=== PATIENT | female | born 1995 | race Caucasian/White ===

== ENCOUNTER → 2025-01-06 14:30 | Outpatient (CLI) | payer OTHER, SELFPAY ==
--- NOTE | 2025-01-06 14:33 | DI.US.S_ITS ---
PROCEDURE: US VENOUS INSUFFICIENCY LTD INDICATIONS: vericous veins TECHNIQUE: Real time scanning was performed of the lower extremity venous system, with imaging documentation, as well as Color and pulse Doppler interrogation. COMPARISON: None. FINDINGS: LEFT LOWER EXTREMITY: The deep veins are normally compressible, and free of intraluminal thrombus (see the bold section below for a partially occlusive thrombus). Color and pulse Doppler demonstrate normal intravascular flow. There is normal augmentation with distal compression maneuver. Greater saphenous vein (GSV): Normally 4 mm or less in diameter, with any reflux less than 0.5 seconds. Saphenofemoral junction (SFJ): 6 mm. Reflux present. Proximal GSV: 6 mm. Reflux present. Mid GSV: 6 mm. Reflux present. Distal GSV: 6 mm. Reflux present. Calf GSV: 5 mm. Anterior accessory GSV (AAGSV): Anatomic variant not present across anterior thigh. Small saphenous vein (SSV): Posterior calf, draining into popliteal vein. Posterior calf: 3 mm. No reflux. Vein of Giacomini (posterior thigh connection between GSV and SSV): Anatomic variant not seen. Nonocclusive thrombus in a small segment of a greater saphenous vein branch at the level of the medial knee joint line. IMPRESSION: Greater saphenous vein reflux, along with a nonocclusive thrombus in a branch of the greater saphenous vein at the level of the medial knee joint line. An unsuccessful attempt was made to communicate these findings to the ordering provider via telephone call on 01/06/2025 at 3:58 p.m.. Dictated by: Rk Mas M.D. on 01/06/2025 at 15:48 Approved by: Rk Mas M.D. on 01/06/2025 at 15:58
== END ==
PROVIDERS: PCP Family Medicine; Referring Provider Family Medicine; Visit Provider Family Medicine
DX: I83.92 Asymptomatic varicose veins of left lower extremity (principal); I82.812 Embolism and thrombosis of superficial veins of left lower extremity
CPT/HCPCS: 93971

== ENCOUNTER 2025-03-27 13:49 | Emergency (ER) | payer OTHER, SELFPAY ==
[2025-03-27 13:55] VITALS: BP 142/82; PULSE 99; O2SAT 97
--- NOTE | 2025-03-27 13:57 | ED_ITS ---
<Statement entered by Maulik Gill, DO - 03/27/25 18:32> Co-sign statement: I was available for consultation during this patient's emergency department visit. This chart is being signed by myself for administrative purposes only. I do not have direct contact with this patient during this visit. They were seen independently by the APC. HPI - General Adult General Chief complaint: Extremity Problem,Nontraumatic Stated complaint: on blood thinner has deep vein thrombosis flare up Time Seen by Provider: 03/27/25 13:52 History of Present Illness HPI narrative: This is a 29-year-old female presents emergency department due to concerns for right lower extremity pain and swelling. States that she was diagnosed with a DVT in the left lower extremity 3 months ago and was placed on Eliquis which she has been taking as prescribed. She had a long drive from [place] to [place] 2 days ago and soon after noticed some pain and mild edema to the right lower extremity. Denies any chest pain, shortness breath, fevers, or any other concerning signs or symptoms. Related Data Allergies Allergy/AdvReac Type Severity Reaction Status Date / Time No Known Drug Allergies Allergy Verified 03/27/25 13:59 Review of Systems Review of Systems Narrative: GENERAL: Denies chills, fatigue, malaise, fever, sweats. HEENT: Denies sinus pain, ear pain, sore throat, difficulty swallowing, dizziness. RESPIRATORY: Denies dyspnea, cough, wheezing, hemoptysis, sputum. CARDIOVASCULAR: Denies chest pain, palpitations, orthopnea, edema, GASTROINTESTINAL: Denies nausea, vomiting, abdominal pain, diarrhea, constipation, melena. : Denies dysuria, frequency, incontinence, hematuria, urinary retention. MUSCULOSKELETAL: Reports right ankle pain and swelling. SKIN: Denies rash, skin lesions, or other NEUROLOGIC: Denies weakness, headache, numbness, change in speech, confusion, seizures, incoordination. PSYCHIATRIC: No concerning psychosocial issues. 12 point review of systems is negative except for those stated above Exam Narrative Exam Narrative: GENERAL: Well-developed patient, in mild distress. HEAD: Atraumatic. Normocephalic. EYES: Pupils equal round and reactive. Extraocular motions intact. No scleral icterus. No injection or drainage. ENT: Nose without bleeding, purulent drainage. Throat without erythema, tonsillar hypertrophy or exudate. Airway patent. NECK: Trachea midline. Non tender EXTREMITIES: No significant edema noted to the right ankle. No tenderness to palpation. No pain with palpation it was so the posterior calf or palpable cords. Does have bilateral sunburns to the lower extremities NEURO: AOx3. SKIN: No rash or erythema of visible areas Initial Vital Signs Initial Vital Signs: Vital Signs Pulse Rate 99 H 03/27/25 13:55 Blood Pressure 142/82 H 03/27/25 13:55 Pulse Oximetry 97 03/27/25 13:55 Course Orders Ordered: ED Orders 03/27/25 14:07 [facility] venous low extrem rt Stat Vital Signs Vital signs: Vital Signs - 8 hr 03/27/25 13:55 03/27/25 13:55 03/27/25 13:59 Temperature 98.2 F Pulse Rate 99 H 85 Respiratory Rate 18 Blood Pressure 142/82 H 142/82 H Pulse Oximetry 97 99 Oxygen Delivery Method Room Air 03/27/25 14:00 03/27/25 14:01 03/27/25 14:01 Temperature Pulse Rate 92 H 99 H Respiratory Rate Blood Pressure 122/69 Pulse Oximetry 99 100 Oxygen Delivery Method 03/27/25 14:30 03/27/25 14:30 Temperature Pulse Rate 84 Respiratory Rate Blood Pressure 121/66 Pulse Oximetry 100 Oxygen Delivery Method Medical Decision Making Imaging Data Extremity x-ray #1: Radiologist's Impression: [place] [address] Ultrasound Report Signed Patient: Irene Funes MR#: [id number] : 1995 Acct:[id number] Age/Sex: 29 / F Date of Service: 03/27/25 Loc: ED Accession Number: [id number] Procedure: [facility] venous low extrem rt Ordering Provider: Ellis Albarado PA-C PROCEDURE: PERIP VENOUS LOW EXTREM RT INDICATIONS: SWELLING. HISTORY OF SUPERFICIAL VENOUS THROMBOSIS TECHNIQUE: Real-time imaging, as well as color and pulse Doppler interrogation, were performed of the lower extremity deep veins from the inguinal ligament to the popliteal fossa, with documentation of the visualized calf veins. COMPARISON: None. FINDINGS: The common femoral, femoral, popliteal, and the visualized calf veins are normally compressible, and free of intraluminal thrombus. Color and pulse Doppler demonstrate normal phasic intraluminal flow. There is normal augmentation response to distal compression maneuver. IMPRESSION: No findings of lower extremity deep venous thrombosis. Dictated by: Bertin Wilson M.D. on 03/27/2025 at 15:39 Approved by: Bertin Wilson M.D. on 03/27/2025 at 15:39 [facility] Narrative Medical decision making narrative: ED course: This is a 21-year-old female presenting to the emergency department due to concerns for right lower extremity pain swelling. She had SVT approximately 3 months ago was placed on Eliquis and she was concerned that she was developing another clot in her right lower extremity. Ultrasound was negative for any kind clot. Suspect musculoskeletal in nature with the patient did not describe any significant mechanism that would be concerning for any kind of fracture no x-rays ordered. Patient does have a sunburn which may be contributing to her discomfort. CC: Right lower extremity pain Complicating co-morbidities: History of SVT on left lower extremity Data collected from: Previous notes Medical records reviewed: On 01/06/2025 start (approximately 3 months ago) patient had a US venous insufficiency exam. Patient was found to have a nonocclusive thrombus in the branch of the greater saphenous vein at the level of the medial knee joint line. Differential considered, but not limited to: Musculoskeletal injury, fracture, DVT Exam documented above, pertinent findings include: No significant swelling noted on exam Lab Test results independently reviewed as above. Pertinent findings: None obtained Imaging studies independently reviewed: Ultrasound negative for DVT Scores Used: None MIPS Elements: None Consultations: None Treatments: None Re-evaluations: None Discussion: Discussed plan with the patient was comfortable with the plan Diagnosis: Muscular strain Disposition: see below, along with detailed discharge instructions that have been reviewed with patient as well as indications for ED re-evaluation and additional outpatient follow up Discharge Plan Departure Patient Disposition: Home Clinical Impression: Musculoskeletal pain Activity Restrictions/Additional Instructions: Thank you for coming to the [facility] Emergency Department today. The ultrasound was negative for any kind of blood clot. Please continue to take your blood thinning medication prescribed by your previous provider and speak to them about how long she continue it for. I suspect the pain you are having his musculoskeletal in nature and should improve over the next few days with rest, ice, warm compresses, and Tylenol. Please return to the emergency department if you develop any chest pain, shortness of breath, worsening swelling or pain, or any other concerning signs or symptoms. I hope you feel better soon. Please follow up with your primary care provider within a week if your symptoms continue. If you do not have a primary care provider please contact the [facility] Resource line at [phone]. They will ask some questions about your medical history and help you get set up with a provider in the community. Referrals: Joseph Richard, [Primary Care Provider, Family Practice] Stand Alone Forms: Patient Portal/API
[2025-03-27 13:59] VITALS: BP 142/82; PULSE 85; RESP 18; TEMP 36.8; O2SAT 99; BMI 23.5
[2025-03-27 14:00] VITALS: PULSE 92; O2SAT 99
[2025-03-27 14:01] VITALS: BP 122/69; PULSE 99; O2SAT 100
--- NOTE | 2025-03-27 14:07 | DI.US.S_ITS ---
PROCEDURE: US PERIPH VENOUS LOW EXTREM RT INDICATIONS: SWELLING. HISTORY OF SUPERFICIAL VENOUS THROMBOSIS TECHNIQUE: Real-time imaging, as well as color and pulse Doppler interrogation, were performed of the lower extremity deep veins from the inguinal ligament to the popliteal fossa, with documentation of the visualized calf veins. COMPARISON: None. FINDINGS: The common femoral, femoral, popliteal, and the visualized calf veins are normally compressible, and free of intraluminal thrombus. Color and pulse Doppler demonstrate normal phasic intraluminal flow. There is normal augmentation response to distal compression maneuver. IMPRESSION: No findings of lower extremity deep venous thrombosis. Dictated by: Bertin Wilson M.D. on 03/27/2025 at 15:39 Approved by: Bertin Wilson M.D. on 03/27/2025 at 15:39
[2025-03-27 14:30] VITALS: BP 121/66; PULSE 84; O2SAT 100
== END 2025-03-27 14:45 | disposition home or self-care (01) ==
PROVIDERS: Emergency Provider Physician Assistant Medical; PCP Family Medicine
DX: M79.604 Pain in right leg (principal); Z86.718 Personal history of other venous thrombosis and embolism; Z79.01 Long term (current) use of anticoagulants
CPT/HCPCS: 93971; 99281; 99283